=== PATIENT | female | born 2000 | race Caucasian/White ===

== ENCOUNTER 2020-09-08 06:13 | Emergency (ER) | payer OTHER, SELFPAY ==
[2020-09-08 06:17] VITALS: BP 124/98; PULSE 90; RESP 18; TEMP 36.3; O2SAT 97
--- NOTE | 2020-09-08 07:17 | PC.NURSE ---
Change of shift nurse Iman informed this RN that pts parents informed her that pt is a paranoid schizophrenia and could possibly be having a mental break. Informed aarti BELL of this.
--- NOTE | 2020-09-08 07:34 | ED.GENADULT ---
HPI - General Adult General Chief complaint: Urogenital-Female Stated complaint: uncontrolling peeing myself. Time Seen by Provider: 09/08/20 07:05 History of Present Illness HPI narrative: Patient is a 20-year-old female who presents the emergency department with chief complaint of frequent urination and urinating on herself. Patient reports that this morning she woke up and she started urinating on herself. Patient states that she has had frequent urgency and feeling as though she needs to go to the bathroom patient denies fevers reports that she has had a little bit of nausea and uncomfortable feeling in her abdomen. Patient reports her last menstrual period was approximately 3 weeks ago states that she has some low back pain with this denies any specific localizing pain. Patient reports also that she has history of schizophrenia and has not been taking her medications for a couple of weeks. The patient denies suicidal or homicidal ideation denies visual or auditory hallucinations. Patient states that she has an appointment on the with her psychiatrist. Related Data Home Medications Medication Instructions Recorded Confirmed aripiprazole mg 09/08/20 benztropine 09/08/20 Allergies Allergy/AdvReac Type Severity Reaction Status Date / Time No Known Allergies Allergy Verified 09/08/20 06:20 Review of Systems Review of Systems: Narrative: A 10 system review of systems was completed on the patient and is negative except for what is stated in the HPI. Nursing and ancillary documentation was reviewed. PMFSH Comments Past medical history significant for schizophrenia Social history the patient denies smoking denies illicit drugs. Exam Narrative: Exam Narrative: GENERAL: Well-appearing, well-nourished, and in no acute distress. HEAD: Normocephalic, atraumatic. EYES: PERRLA and EOMI. ENT: Nares clear, no rhinorrhea or epistaxis. Mucous membranes moist. NECK: Supple. CHEST: Clear to auscultation. No respiratory distress. HEART: Regular rate and rhythm. No murmur heard. Normal peripheral pulses. ABDOMEN: Soft, nontender, nondistended, normal active bowel sounds. EXTREMITIES: Normal range of motion. No edema. SKIN: Warm, dry, no rash. NEURO: No focal deficits. Alert and oriented x3. Denies suicidal or homicidal ideation PSYCH: Normal mood and affect. Course Course Emergency Course: The patient has not had any episodes of urinating on herself in the emergency department. Patient's urinalysis was negative the patient is showing no signs of spinal cord injury or neurological dysfunction. Patient is not suicidal or homicidal. It was discussed with the patient and the patient's family for short-term follow-up will be the most important course of action with this. Vital Signs Vital signs: Vital Signs Temperature 36.3 C L 09/08/20 06:17 Pulse Rate 90 09/08/20 06:17 Respiratory Rate 18 09/08/20 06:17 Blood Pressure 124/98 H 09/08/20 06:17 Pulse Oximetry 97 09/08/20 06:17 Temperature 36.3 C L 09/08/20 06:17 Pulse Rate 90 09/08/20 06:17 Respiratory Rate 18 09/08/20 06:17 Blood Pressure 124/98 H 09/08/20 06:17 Pulse Oximetry 97 09/08/20 06:17 Medical Decision Making Vital Signs Vital Signs: Vital Signs Temperature 36.3 C L 09/08/20 06:17 Pulse Rate 90 09/08/20 06:17 Respiratory Rate 18 09/08/20 06:17 Blood Pressure 124/98 H 09/08/20 06:17 Pulse Oximetry 97 09/08/20 06:17 Temperature 36.3 C L 09/08/20 06:17 Pulse Rate 90 09/08/20 06:17 Respiratory Rate 18 09/08/20 06:17 Blood Pressure 124/98 H 09/08/20 06:17 Pulse Oximetry 97 09/08/20 06:17 Lab Data Result diagrams: 09/08/20 07:43 09/08/20 07:43 Labs: Lab Results 09/08/20 09/08/20 09/08/20 Range/Units 07:43 07:43 07:43 WBC 10.4 H (4.5-10.0) K/mm3 RBC 4.90 (4.2-5.4) M/mm3 Hgb 14.9 (12.0-15.0) g/dL Hct 42.7 (37.0-47.0) % MCV
[2020-09-08 07:55] LABS: Basophils Absolute Auto 0.1 K/mm3 (0.0-0.1); Basophils Percent Auto 0.8 % (0.2-1.2); Hematocrit 42.7 % (37.0-47.0); Hemoglobin 14.9 g/dL (12.0-15.0); Immature Granulocyte Absolute 0.02 K/mm3 (0.00-0.031); Immature Granulocyte Percent A 0.2 % (0-0.5); Lymphocytes Absolute Auto 0.96 K/mm3 (0.9-3.2); Lymphocytes Percent Auto 9.3 % (18.3-44.2); Mean Corpuscular HGB Conc 34.9 g/dl (32-36); Mean Corpuscular Hemoglobin 30.4 pg (26-34); Mean Corpuscular Volume 87.1 fl (80-100); Mean Platelet Volume 9.4 fl (7.4-10.4); Monocytes Absolute Auto 0.6 K/mm3 (0.1-0.6); Monocytes Percent Auto 5.5 % (2.6-8.5); Neutrophils Absolute Auto 8.7 K/mm3 (1.3-6.7); Neutrophils Percent Auto 84.2 % (45.5-73.1); Platelet Count Result 326 k/mm3 (150-375); Red Cell Distribution Width 11.9 % (11.5-14.5); White Blood Count 10.4 K/mm3 (4.5-10.0)
[2020-09-08 07:57] LABS: Add Urine Microscopic? NO; Appearance Urine Clear (Clear); Bilirubin Urine Negative (Negative); Blood Urine Negative (Negative); Color Urine Colorless (Yellow); Glucose Urine UA Negative (Negative); Ketones Urine Negative (Negative); Leukocyte Esterase Ur Negative LEU/UL (Negative); Nitrate Urine Negative (Negative); Protein Urine Negative (Negative); Urobilinogen Urine Negative mg/dL (<2.0)
[2020-09-08 08:04] LABS: Specific Grav Ur 1.004 (1.001-1.035)
[2020-09-08 08:07] LABS: Acetaminophen < 10 ug/mL (10-30); Ethanol < 10 mg/dL (<10); Salicylate < 1.0 mg/dL (2-20)
[2020-09-08 08:10] LABS: Alanine Aminotransferase 15 U/L (4-35); Albumin Level 4.4 g/dL (3.5-5.1); Alkaline Phosphatase 26 U/L (38-126); Anion Gap 8 mmol/L (8-16); Aspartate Amino Transferase 26 U/L (14-36); Bilirubin,Total 0.7 mg/dL (0.2-1.3); Blood Urea Nitrogen 7 mg/dL (7-17); Calcium 9.7 mg/dL (8.4-10.2); Carbon Dioxide 28 mmol/L (22-30); Chloride 98 mmol/L (98-107); Estimated CRCL calculation 118 ml/min; Estimated Glomerular Filt Rate > 60; Glucose 92 mg/dL (65-105); Potassium 3.3 mmol/L (3.4-5.0); Sodium 134 mmol/L (137-145)
[2020-09-08 08:12] LABS: Amphetamine Screen Urine Negative (Negative); Barbiturate Screen Urine Negative (Negative); Benzodiazepines Screen Urine Negative (Negative); Cannabinoid Screen Urine Negative (Negative); Cocaine Screen Urine Negative (Negative); Methadone Screen Urine Negative (Negative); Opiate Screen Urine Negative (Negative); Phencyclidine Screen Urine Negative (Negative)
== END 2020-09-08 08:34 | disposition home or self-care (01) ==
PROVIDERS: Emergency Medicine; Emergency Provider Emergency Medicine
DX: R30.0 Dysuria (principal); F20.9 Schizophrenia, unspecified
CPT/HCPCS: 36415; 80053; 80307; 81003; 81025; 84443; 85025; 99283

== ENCOUNTER 2021-09-26 14:34 | Emergency (ER) | payer OTHER, SELFPAY ==
--- NOTE | 2021-09-26 14:40 | ECG_ITS ---
Measurements Intervals [place] Rate: 123 P: 60 NM: 154 QRS: 66 QRSD: 85 T: 49 QT: 341 QTc: 490 Interpretive Statements SINUS TACHYCARDIA INCOMPLETE RIGHT BUNDLE BRANCH BLOCK ABNORMAL ECG Electronically Signed On 09-26-2021 15:18:45 TURF MANAGER by Iraj España D.O.
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
[2021-09-26 14:50] VITALS: BP 133/89; PULSE 120; RESP 18; TEMP 36.9; O2SAT 100
[2021-09-26] MEDS: LORazepam INJ (*CRX) 2 MG/ML VIAL 1 MG IV PUSH (14:56)
[2021-09-26 14:58] LABS: Basophils Absolute Auto 0.1 K/mm3 (0.0-0.1); Basophils Percent Auto 1.1 % (0.2-1.2); Eosinophils Percent Auto 0.4 % (0-4.4); Hematocrit 42.8 % (37.0-47.0); Hemoglobin 14.7 g/dL (12.0-15.0); Immature Granulocyte Absolute 0.03 K/mm3 (0.00-0.031); Immature Granulocyte Percent A 0.3 % (0-0.5); Mean Corpuscular HGB Conc 34.3 g/dl (32-36); Mean Corpuscular Hemoglobin 29.5 pg (26-34); Mean Corpuscular Volume 85.8 fl (80-100); Monocytes Absolute Auto 0.6 K/mm3 (0.1-0.6); Monocytes Percent Auto 7.1 % (2.6-8.5); Neutrophils Absolute Auto 6.5 K/mm3 (1.3-6.7); Neutrophils Percent Auto 72.1 % (45.5-73.1); Platelet Count Result 342 k/mm3 (150-375); Red Blood Count 4.99 M/mm3 (4.2-5.4); Red Cell Distribution Width 12.9 % (11.5-14.5)
--- NOTE | 2021-09-26 15:05 | PC.NURSE ---
Unable to assess suicidal or homicidal ideations due to pt not answering any questions. EMS states family on scene was unaware of recent suicidal or homicidal thoughts.
[2021-09-26 15:13] LABS: Acetaminophen < 10 ug/mL (10-30); Ethanol < 10 mg/dL (<10); Salicylate < 1.0 mg/dL (2-20)
[2021-09-26 15:18] LABS: Albumin Level 4.8 g/dL (3.5-5.1); Alkaline Phosphatase 31 U/L (38-126); Anion Gap 15 mmol/L (8-16); Aspartate Amino Transferase 29 U/L (14-36); Bilirubin,Total 0.8 mg/dL (0.2-1.3); Blood Urea Nitrogen 11 mg/dL (7-17); Calcium 9.7 mg/dL (8.4-10.2); Carbon Dioxide 21 mmol/L (22-30); Chloride 103 mmol/L (98-107); Estimated CRCL calculation 90 ml/min; Estimated Glomerular Filt Rate > 60; Glucose 132 mg/dL (65-110); Potassium 3.3 mmol/L (3.4-5.0); Sodium 139 mmol/L (137-145)
[2021-09-26 15:29] LABS: Alanine Aminotransferase 26 U/L (4-35)
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
--- NOTE | 2021-09-26 15:47 | PC.NURSE ---
Pt resting on stretcher. Calm at this time. Pt's father at bedside. Father updated on pt status and treatment plan.
--- NOTE | 2021-09-26 15:53 | PC.NURSE ---
Multiple attempts made to give pt ordered Abilify. Pt will not acknowledge RN. Pt keeps eyes closed and will not attempt to sit up. Dr. Urrutia made aware. ERP going to reassess pt and speak with pt's father.
[2021-09-26] MEDS: HALOPERIDOL LACTATE 5 MG/ML VIAL IM (16:44)
--- NOTE | 2021-09-26 18:01 | PC.NURSE ---
Pt given cup of water. Pt acknowledging staff now and states she will give urine sample after drinking some water. Pt remains calm and cooperative. Father at bedside.
--- NOTE | 2021-09-26 19:40 | PC.NURSE ---
Pt went to bathroom to provide urine sample. Pt attempted without success. Pt agreeable to cath for urine collection. Cath attempted x2 without success. Pt asked that no more attempts be made with catheterization. Dr. Urrutia made aware.
--- NOTE | 2021-09-26 19:45 | PC.NURSE ---
Report given to MOIRA Harp.
[2021-09-26 21:42] LABS: Add Urine Microscopic? NO; Appearance Urine Clear (Clear); Bilirubin Urine Negative (Negative); Blood Urine Negative (Negative); Color Urine Straw (Yellow); Glucose Urine UA Negative (Negative); Ketones Urine Negative (Negative); Leukocyte Esterase Ur Negative LEU/UL (Negative); Nitrate Urine Negative (Negative); Protein Urine Negative (Negative); Urobilinogen Urine Negative mg/dL (<2.0)
[2021-09-26 21:47] LABS: Specific Grav Ur 1.003 (1.001-1.035)
[2021-09-26 22:07] LABS: Amphetamine Screen Urine Negative (Negative); Barbiturate Screen Urine Negative (Negative); Benzodiazepines Screen Urine Negative (Negative); Cannabinoid Screen Urine Negative (Negative); Cocaine Screen Urine Negative (Negative); Methadone Screen Urine Negative (Negative); Opiate Screen Urine Negative (Negative); Phencyclidine Screen Urine Negative (Negative)
[2021-09-26 22:55] LABS: EDCOVIDSCREEN Negative (Negative)
--- NOTE | 2021-09-26 23:48 | PC.NURSE ---
crisis here to eval patient
--- NOTE | 2021-09-27 02:02 | PC.NURSE ---
patient accepted at [facility]
--- NOTE | 2021-09-27 06:00 | PC.NURSE ---
attempted to call nurse report to [facility] they reported will have to call back
--- NOTE | 2021-09-27 06:14 | PC.NURSE ---
report to clarice bloom at [facility]
[2021-09-27 07:00] VITALS: BP 128/88; PULSE 87; RESP 18; O2SAT 100
== END 2021-09-27 07:10 ==
LOC: ANHED 15:32
PROVIDERS: Emergency Provider Emergency Medicine
DX: F91.9 Conduct disorder, unspecified (principal); Z20.822 Contact with and (suspected) exposure to COVID-19
CPT/HCPCS: 36415; 80053; 80307; 81003; 81025; 84443; 85025; 87426; 93005; 96372; 96374; 99285; C9803; J1630; J2060